=== PATIENT | female | born 1960 | race Caucasian/White ===

== ENCOUNTER 2017-02-03 07:22 | Emergency (ER) | payer OTHER ==
[2017-02-03] MEDS ORDERED: IPRATROPIUM/ALBUTEROL 3 ML DEYVIAL IH ONE (07:53)
[2017-02-03 07:55] VITALS: BP 136/95; PULSE 107; RESP 18; TEMP 99.5; O2SAT 94
--- NOTE | 2017-02-03 08:14 | UCPHY ---
H & P Time Seen by Provider: 02/03/17 07:43 Patient Type: New HPI/ROS: This patient presents with a chief complaint fever, cough, headache, myalgias which began 2 days ago. Her temperature has been as high as 102 degrees. She felt like she was wheezing 3 days ago but did not experience the fever malaise till later on the following day. She does have dyspnea on exertion and chest pain and throat pain when coughing. She has stable nasal congestion from her allergies and some pressure in her ears but no sore throat. She has had a flu immunization. She has not had wheezing or used an inhaler in the past. Smoking Status: Never smoked Physical Exam: GENERAL: Well-appearing, well-nourished and in no acute distress. HEAD: Atraumatic, normocephalic. EYES: , sclera anicteric, conjunctiva are normal. ENT: TMs normal, nares patent, oropharynx clear without exudates. Moist mucous membranes. NECK: Normal range of motion, supple without lymphadenopathy or JVD. LUNGS: The patient is in no respiratory distress, breath sounds are more prominent on the right than the left, there is no obvious wheezing or prolongation of the expiratory phase even on forced expiration. The patient had received and inhalation treatment prior to my evaluation. HEART: Regular rate and rhythm tachycardia EXTREMITIES: Normal range of motion, NEUROLOGICAL: Cranial nerves II through XII grossly intact. Normal speech, normal gait. PSYCH: Normal mood, normal affect. SKIN: Warm, dry, normal turgor, no visible rashes or lesions. Constitutional: Initial Vital Signs Temperature (C) 37.5 C 02/03/17 07:48 Heart Rate 107 H 02/03/17 07:48 Respiratory Rate 18 02/03/17 07:48 Blood Pressure 136/95 H 02/03/17 07:48 O2 Sat (%) 94 02/03/17 07:48 O2 Delivery Mode Room Air Allergies/Adverse Reactions: codeine Allergy (Verified 02/03/17 08:11) Home Medications: Medication Instructions Recorded Albuterol [Albuterol HFA 8 gm] 2 puffs IH QID #1 mdi 02/03/17 Levothyroxine Sodium 02/03/17 Methotrexate 02/03/17 Obcp 02/03/17 Oseltamivir Phosphate [Tamiflu 75 75 mg PO BID #10 cap 02/03/17 mg (RX)] Medical Decision Making - Diagnostics Imaging: A chest x-ray shows no evidence of infiltrate or any other abnormality. ED Course/Re-evaluation: The patient was given DuoNeb by seamus. Afterward she said that she felt like she was able to breathe more easily. - Data Points Laboratory Results: 02/03/17 07:45 Influenza Typ A,B (DFA) POSITIVE FOR FLU A H (NEGATIVE) Medications Given: Discontinued Medications Albuterol/Ipratropium (Duoneb) 3 ml IH EDNOW ONE Stop: 02/03/17 07:54 Last Admin: 02/03/17 07:55 Dose: 3 ml Departure - Departure Disposition: Home, Routine, Self-Care Clinical Impression: Influenza A Condition: Good Instructions: Influenza (ED) Additional Instructions: If your symptoms have not resolved in another 7-10 days you should be re- evaluated. Keep herself well hydrated but do not force herself to eat. Minimize her activities for the next week and avoid spreading the virus but keeping her hands clean and covering her mouth when you cough. Use the inhaler at least 4 times daily but if you are having coughing fits or any difficulty breathing it is safe to use it every 2 hours if necessary. Adult Pain & Fever Control: We recommend Acetaminophen (Tylenol) and Ibuprofen (Motrin, Advil) for pain and fever control. When fever is high or pain severe, both drugs can be used at the same time, but at different intervals. Please note the time differences. Your dose is: Acetaminophen [650]mg every 4 to 6 hours ibuprofen [600]mg every [6] hours with food OR naproxen Sodium (Aleve) [440]mg every 12 hours. Note: do not take Acetaminophen with Hydrocodone (Vicodin, Lortab) or Oxycodone (Percocet). These medications also contain Acetaminophen. No more than 3000 mg of Acetaminophen should be taken in 24 hours (for an adult) . The maximal dose of ibuprofen that it is safe in a 24-hour period is 2400 mg. You may take 400 mg every 4 hours, 600 mg every 6 hours or 800 mg every 8 hours safely. Referrals: MEGAN SILVERIO [Primary Care Provider] - As per Instructions Prescriptions: Albuterol [Albuterol HFA 8 gm] 2 puffs IH QID #1 mdi Oseltamivir Phosphate [Tamiflu 75 mg (RX)] 75 mg PO BID #10 cap - PQRS PQRS Measurement: Not applicable
== END 2017-02-03 08:44 | disposition home or self-care (01) ==
LOC: CED 07:22
DX: J10.1 Influenza due to other identified influenza virus with other respiratory manifestations (principal)
CPT/HCPCS: 71020-PO; 87400-PO; 99203-PO; G0463-PO